=== PATIENT | male | born 1980 | race Caucasian/White ===

== ENCOUNTER 2022-06-17 09:03 | Emergency (ER) | payer BC, SELFPAY ==
[2022-06-17 09:11] VITALS: BP 135/91; PULSE 84; RESP 16; TEMP 36.7; O2SAT 99
--- NOTE | 2022-06-17 09:17 | ED.URI ---
HPI - URI/Sore Throat General Chief Complaint: Upper Respiratory Infection Stated Complaint: Sore Throat Time Seen by Provider: 06/17/22 09:18 Source: patient, RN notes reviewed and old records reviewed Mode of arrival: ambulatory Limitations: no limitations History of Present Illness HPI Narrative: 41-year-old male who presents to [facility] with complaints of sore throat, nasal drainage has felt feverish for the past 4 days. Patient states he has taken Mucinex and NyQuil and Dimetapp for his symptoms. Ptient states that his daughter has been ill also.Patient reports no COVID vaccinations or any flu shot MD elicited complaint: sore throat, rhinorrhea and nasal congestion Onset (ago): day(s) (4) Pain scale (0-10): 8 Treatments prior to arrival: ibuprofen and other (Mucinex,Ibuprofen,Dimetapp, Nyquil) Related Data Allergies Allergy/AdvReac Type Severity Reaction Status Date / Time No Known Allergies Allergy Verified 06/17/22 09:17 Review of Systems Review of Systems: CONSTITUTIONAL: Reports malaise, chills, sweats, or fever. EYES: Denies visual changes, redness, or discharge. ENT: Reports rhinorrhea, congestion, sinus pain,no otalgia positive for sore throat. CARDIOVASCULAR: Denies chest pain, palpitations, or edema. RESPIRATORY: Reports no cough.? Denies dyspnea. GASTROINTESTINAL: Denies abdominal pain, nausea, vomiting, diarrhea SKIN: Denies rash or itching. MUSCULOSKELETAL: Denies myalgia. NEUROLOGIC: Denies headache. All systems reviewed & are unremarkable except as noted in HPI and below PMFSH Comments At time of signature, agree with nursing past medical, surgical, social and family history. There is no relevant family history pertinent to the presenting complaint Exam Narrative: GENERAL: Well-appearing, well-nourished, and in no acute distress. HEAD: Normocephalic EYES: PERRLA, conjunctivae clear ENT: Nares clear, turbinates edematous and erythematous, clear discharge. Mucous membranes moist. TM pearly avila with dull light reflex bilaterally; no tragal tenderness. Oropharynx erythematous without lesions. Tonsils red enlarged and without exudate, no drooling, no hoarseness, no trismus, uvula midline.painful swallowing NECK: Supple. No lymphadenopathy CHEST: Clear to auscultation, breath sounds equal. No wheezing, rhonchi, rales, or stridor. No respiratory distress, speaks in full sentences.SAO2 99% on room air HEART: Regular rate and rhythm. No murmur heard. SKIN: Warm, dry, no rash. NEURO: Alert and oriented x3. PSYCH: Normal mood and affect Course Course Emergency Course: Patient is aware of diagnosis, understands and agrees to treatment plan.? Anticipatory guidance given.? Patient agrees to follow-up as directed and is aware of reasons to seek care at the emergency department. Portions of this record may have been created with voice recognition software Level of Care: Express Care Visit Vital Signs Vital signs: Vital Signs Temperature 36.7 C 06/17/22 09:11 Pulse Rate 84 06/17/22 09:11 Respiratory Rate 16 06/17/22 09:11 Blood Pressure 135/91 H 06/17/22 09:11 Pulse Oximetry 99 06/17/22 09:11 Oxygen Delivery Room Air 06/17/22 09:11 Temperature 36.7 C 06/17/22 09:11 Pulse Rate 84 06/17/22 09:11 Respiratory Rate 16 06/17/22 09:11 Blood Pressure 135/91 H 06/17/22 09:11 Pulse Oximetry 99 06/17/22 09:11 Oxygen Delivery Room Air 06/17/22 09:11 Reviewed MDM - URI/Sore Throat MDM Narrative Medical decision making narrative: Differential diagnosis considered: Holgu[place] virus, strep pharyngitis, allergic rhinitis, upper respiratory tract infection, sinusitis, rhinosinusitis, nasopharyngitis. viral pharyngitis, otitis media, otitis externa, pneumonia, bronchitis, viral cough syndrome, viral syndrome, and influenza.? Exam findings show no acute concerns or changes; patient is non-toxic appearing and is in no distress.? Patient is appropriate for
== END 2022-06-17 10:00 | disposition home or self-care (01) ==
PROVIDERS: Emergency Provider Registered Nurse
DX: J01.90 Acute sinusitis, unspecified (principal); Z20.822 Contact with and (suspected) exposure to COVID-19
CPT/HCPCS: 87081; 87426; 87804; 87880; 99213; C9803; G0463

== ENCOUNTER 2024-04-01 18:28 | Emergency (ER) | payer BC, SELFPAY ==
[2024-04-01 18:37] VITALS: BP 145/84; PULSE 67; RESP 18; TEMP 36.9; O2SAT 99
--- NOTE | 2024-04-01 19:04 | ED.URI ---
HPI - URI/Sore Throat General Chief Complaint: Upper Respiratory Infection Stated Complaint: Chest Congestion Time Seen by Provider: 04/01/24 19:04 Source: patient Mode of arrival: ambulatory Limitations: no limitations History of Present Illness HPI Narrative: 43 yo M presents with c/o cough, chest congestion for 2 wks. Afebrile. Was seen at another and given zpak. Finished abx today and states feels worse. C/o chest tightness, SOB with exertion. All systems reviewed and negative except as noted above. Related Data Home Medications Medication Instructions Recorded Confirmed valacyclovir 500 mg tablet 500 mg PO DAILY 04/01/24 04/01/24 Allergies Allergy/AdvReac Type Severity Reaction Status Date / Time No Known Allergies Allergy Verified 04/01/24 18:45 Review of Systems Review of Systems: CONSTITUTIONAL: Denies fever, chills, or sweats. EYES: Denies visual changes, redness, or discharge. ENT: Denies rhinorrhea, congestion, sore throat, or otalgia. CARDIOVASCULAR: Denies chest pain, palpitations, or edema. RESPIRATORY: Reports cough, chest congestion, dyspnea with exertion. GASTROINTESTINAL: Denies abdominal pain, nausea, vomiting, or diarrhea. GENITOURINARY: Denies dysuria or hematuria. SKIN: Denies rash or itching. MUSCULOSKELETAL: Denies back pain, joint pain, or myalgia. NEUROLOGIC: Denies headache, numbness, or weakness. PSYCHIATRIC: Denies anxiety or depression. All other systems reviewed are negative, except as documented in HPI. PMFSH Comments At time of signature, agree with nursing past medical, surgical, social and family history. There is no relevant family history pertinent to the presenting complaint. Exam Narrative: GENERAL: This is a well-nourished, well-developed patient, in no apparent distress. HEAD: normocephalic, atraumatic. EYES: PERRL. Sclera clear/white. Vision is grossly intact. EARS: External ears normal, auditory canals clear and without drainage, TMs normal without perforation. Hearing grossly intact. NOSE: External nose normal with no obvious nasal discharge, nares without redness, no rhinorrhea. THROAT: Mucous membranes moist, posterior pharynx clear. NECK: Neck supple, non-tender without lymphadenopathy, masses or thyromegaly. CARDIOVASCULAR: Regular rate and rhythm without murmurs, gallops, or rubs. RESPIRATORY: mildly coarse throughout all lung lovelace. Breath sounds equal bilaterally. No wheezes, rales, or rhonchi. SKIN: warm, Dry, intact with no suspicious lesions or rash, good texture and turgor. NEURO: awake, alert, and oriented to person, place and time. There were no obvious focal neurologic abnormalities. EXTREMITIES: No joint tenderness, effusion, or edema noted. Course Course Level of Care: Express Care Visit Reevaluation(s) Reevaluation #1: continues to have mildly coarse lung sounds on expiration after breathing treatment Vital Signs Vital signs: Vital Signs Temperature 36.9 C 04/01/24 18:37 Pulse Rate 67 04/01/24 18:37 Respiratory Rate 18 04/01/24 18:37 Blood Pressure 145/84 H 04/01/24 18:37 Pulse Oximetry 99 04/01/24 18:37 Oxygen Delivery Room Air 04/01/24 18:37 Temperature 36.9 C 04/01/24 18:37 Pulse Rate 67 04/01/24 18:37 Respiratory Rate 18 04/01/24 18:37 Blood Pressure 145/84 H 04/01/24 18:37 Pulse Oximetry 99 04/01/24 18:37 Oxygen Delivery Room Air 04/01/24 18:37 Reviewed MDM - URI/Sore Throat MDM Narrative Medical decision making narrative: patient on Z-Ren and does not feel like antibiotic is working. Took last dose today. Will prescribe doxycycline, prednisone, albuterol inhaler. No respiratory distress. Oxygen saturation 99%. Nontoxic. Patient is aware of diagnosis, understands and agrees to treatment plan. Anticipatory guidance given. Patient agrees to follow-up as directed and is aware of reasons to seek care at the emergency department. Portions of this record may have
[2024-04-01] MEDS: ALBUTEROL SULFATE NEB 2.5 MG/3 ML INH INHALATION (19:15)
[2024-04-01 19:35] VITALS: PULSE 90; RESP 20; O2SAT 98
== END 2024-04-01 19:35 | disposition home or self-care (01) ==
PROVIDERS: Emergency Provider Nurse Practitioner Family
DX: J20.9 Acute bronchitis, unspecified (principal)
CPT/HCPCS: 94640; 99213; G0463